=== PATIENT | female | born 1965 | race Caucasian/White ===

== ENCOUNTER 2017-06-16 21:22 | Inpatient (IN) | payer BC ==
[~2017-06-16] VITALS: Ht 160 cm; Wt 86.3 kg
[~2017-06-16 21:22] MED LIST: AMBIEN5 MG PO; BACTROBAN CREAM15 GM TP; CINNAMON BARK500 MG PO; CYMBALTA30 MG PO; DAILY MULTIPLE1 EACH PO; FISH OIL 500 M1 EAC3 PO; NORCO 5/3251 TABLET PO
[2017-06-17 09:36] VITALS: BP 125/68
[2017-06-17 22:41] VITALS: BP 135/67
[2017-06-18 06:10] VITALS: BP 121/69
[2017-06-18 08:19] VITALS: BP 105/57
[2017-06-18] MEDS ORDERED: CYCLOBENZAPRINE10 MG PO (08:31)
[2017-06-18] MEDS ORDERED: NORCO 5/3251 TABLET PO (08:31)
[2017-06-18 11:35] VITALS: BP 108/58
[2017-06-18 15:54] VITALS: BP 123/61
[2017-06-18 19:23] VITALS: BP 121/62
[2017-06-18 22:58] VITALS: BP 130/62
[2017-06-19 08:27] VITALS: BP 110/57
== END 2017-06-19 13:06 | disposition home or self-care (01) | DRG 460 ==
LOC: ENRESERV 21:22 → 3EAST 06-17 09:03 → 2SOUTH 06-17 09:03 → ENRESERV 06-17 18:00 → 3EAST 06-17 21:59
PROC: 0SG30AJ Fusion of Lumbosacral Joint with Interbody Fusion Device, Posterior Approach, Anterior Column, Open Approach (ICD-10-PCS; principal; 2017-06-17)
DX: Q76.2 Congenital spondylolisthesis (principal); E66.9 Obesity, unspecified; Z68.33 Body mass index [BMI] 33.0-33.9, adult; Z87.891 Personal history of nicotine dependence
CPT/HCPCS: 36415; 72100; 76000; 80048; 81003; 85025; 86850; 86900; 86901; 95886; 95938; J0131; J0330; J0690; J1100; J1170; J1580; J1885; J2250; J2405; J3010; J3370; J3480